=== PATIENT | male | born 1930 | race Caucasian/White ===

== ENCOUNTER 2016-04-18 14:30 | Inpatient (IN) | payer MEDICARE, OTHER ==
[~2016-04-18] VITALS: Ht 172.7 cm; Wt 71.6 kg
[2016-04-18 16:02] VITALS: BP_SYST 110; RESP 18; TEMP 97.9
[2016-04-18] MEDS ORDERED: SODIUM CHLORIDE 0.9% 1,000 ML IV SCH (18:25)
[2016-04-18 19:34] VITALS: BP_SYST 98; RESP 18; TEMP 98.1
[2016-04-18 20:54] VITALS: RESP 18
[2016-04-18] MEDS ORDERED: SULFAMETHOXAZOLE IV SCH (21:00)
[2016-04-18] MEDS ORDERED: METOPROLOL TART 25 MG TAB PO SCH (21:00)
[2016-04-18] MEDS ORDERED: TRIMETHOPRIM IV SCH (21:00)
[2016-04-18] MEDS: SUCRALFATE 1 GM TAB PO SCH (21:20)
[2016-04-18] MEDS: PREDNISONE 10 MG TAB PO SCH (21:20)
[2016-04-18] MEDS: SACCHA BOULARDII 250MG CAP PO SCH (21:20)
[2016-04-18] MEDS: FAMOTIDINE 20 MG TAB PO SCH (21:21)
[2016-04-18] MEDS: MINOCYCLINE HCL 50 MG CAP PO SCH (21:21)
[2016-04-18] MEDS: SULFAMETH IV SCH (21:23)
[2016-04-18] MEDS: DEXTROSE 5% IV SCH (21:23)
[2016-04-18] MEDS: TRIMETH IV SCH (21:23)
[2016-04-18] MEDS: DUONEB INH PRN (21:25)
[2016-04-18] MEDS ORDERED: LORAZEPAM 0.5 MG TAB PO ONE ×2 (22:50→22:55)
[2016-04-18 23:31] VITALS: BP_SYST 92; RESP 18; TEMP 96.9
[2016-04-19] VITALS (11 sets, daily range): BP systolic 118–142; RESP 18; TEMP 96.6–97.2; Ht 172.7 cm; Wt 71.6 kg
[2016-04-19] MEDS: DUONEB INH PRN ×6 (02:46→23:01)
[2016-04-19] MEDS ORDERED: LORAZEPAM 0.5 MG TAB ONE (06:03)
[2016-04-19] MEDS: SUCRALFATE 1 GM TAB PO SCH ×5 (06:37→21:29)
[2016-04-19] MEDS: DEXTROSE 5% IV SCH ×3 (08:00→19:11)
[2016-04-19] MEDS: TRIMETH IV SCH ×3 (08:00→19:11)
[2016-04-19] MEDS: SULFAMETH IV SCH ×3 (08:00→19:11)
[2016-04-19] MEDS ORDERED: SODIUM CHLORIDE 0.9% 1,000 ML IV SCH (08:10)
[2016-04-19] MEDS ORDERED: PHARMACY TO DOSE ANTIBIOTIC XX SCH (08:10)
[2016-04-19] MEDS ORDERED: KAYEXOLATE 15 GM/60 ML BTL PO ONE (08:15)
[2016-04-19] MEDS: FAMOTIDINE 20 MG TAB PO SCH ×2 (08:57→21:28)
[2016-04-19] MEDS: MINOCYCLINE HCL 50 MG CAP PO SCH ×2 (08:57→21:28)
[2016-04-19] MEDS: PREDNISONE 10 MG TAB PO SCH (08:57)
[2016-04-19] MEDS: SACCHA BOULARDII 250MG CAP PO SCH ×3 (08:57→21:29)
[2016-04-19] MEDS ORDERED: **NOTE TO NURSE XX SCH (09:10)
[2016-04-19] MEDS ORDERED: ONDANSETRON 4 MG VIAL ONE (14:07)
[2016-04-19] MEDS ORDERED: DILAUDID 1 MG/ML AMP ONE (15:05)
[2016-04-19] MEDS ORDERED: PREDNISONE 10 MG TAB PO ONE (18:00)
[2016-04-19] MEDS: DILTIAZEM CD 180 MG CAP PO SCH (19:17)
[2016-04-20] MEDS: DEXTROSE 5% IV SCH ×4 (02:18→23:58)
[2016-04-20] MEDS: TRIMETH IV SCH ×4 (02:18→23:58)
[2016-04-20] MEDS: SULFAMETH IV SCH ×4 (02:18→23:58)
[2016-04-20] MEDS: DUONEB INH PRN ×6 (02:41→23:01)
[2016-04-20 03:40] VITALS: BP_SYST 158; RESP 18; TEMP 97.3
[2016-04-20] MEDS ORDERED: METOPROLOL XL 25 MG TAB PO ONE (05:40)
[2016-04-20] MEDS: SUCRALFATE 1 GM TAB PO SCH ×4 (06:04→20:27)
[2016-04-20 07:41] VITALS: BP_SYST 120; RESP 16; TEMP 97
[2016-04-20] MEDS: MINOCYCLINE HCL 50 MG CAP PO SCH ×2 (08:44→20:27)
[2016-04-20] MEDS: FAMOTIDINE 20 MG TAB PO SCH ×2 (08:44→20:27)
[2016-04-20] MEDS: SACCHA BOULARDII 250MG CAP PO SCH ×3 (08:44→20:26)
[2016-04-20] MEDS: DILTIAZEM CD 180 MG CAP PO SCH (08:44)
[2016-04-20] MEDS: PREDNISONE 20 MG TAB PO SCH (08:45)
[2016-04-20] MEDS: BACITRACIN OINT TOPICAL SCH (08:46)
[2016-04-20] MEDS ORDERED: MISSING DOSE XX ONE (08:50)
[2016-04-20] MEDS ORDERED: APIXABAN 2.5 MG TAB PO SCH (09:00)
[2016-04-20 12:20] VITALS: BP_SYST 110; RESP 20; TEMP 96.2
[2016-04-20 15:39] VITALS: BP_SYST 118; RESP 18; TEMP 97.9
[2016-04-20 20:21] VITALS: BP_SYST 132; RESP 18; TEMP 96.8
[2016-04-20 23:05] VITALS: BP_SYST 140; RESP 16; TEMP 97.3
[2016-04-21] MEDS: DUONEB INH PRN ×6 (02:45→22:33)
[2016-04-21 03:37] VITALS: BP_SYST 128; RESP 16; TEMP 96.9
[2016-04-21] MEDS: SUCRALFATE 1 GM TAB PO SCH ×4 (06:33→20:20)
[2016-04-21] MEDS: BACITRACIN OINT TOPICAL SCH (07:39)
[2016-04-21 07:46] VITALS: BP_SYST 124; RESP 16; TEMP 96.8
[2016-04-21] MEDS: SACCHA BOULARDII 250MG CAP PO SCH ×3 (08:47→20:20)
[2016-04-21] MEDS: MINOCYCLINE HCL 50 MG CAP PO SCH ×2 (08:47→20:20)
[2016-04-21] MEDS: FAMOTIDINE 20 MG TAB PO SCH ×2 (08:47→20:20)
[2016-04-21] MEDS: PREDNISONE 20 MG TAB PO SCH (08:47)
[2016-04-21] MEDS ORDERED: MISSING DOSE XX ONE ×2 (08:50→08:55)
[2016-04-21] MEDS: DILTIAZEM CD 180 MG CAP PO SCH (09:17)
[2016-04-21] MEDS: TRIMETH IV SCH (09:17)
[2016-04-21] MEDS: DEXTROSE 5% IV SCH (09:17)
[2016-04-21] MEDS: SULFAMETH IV SCH (09:17)
[2016-04-21 11:51] VITALS: BP_SYST 130; RESP 16; TEMP 96.9
[2016-04-21 16:15] VITALS: BP_SYST 132; RESP 18; TEMP 97.8
[2016-04-21 19:31] VITALS: BP_SYST 134; RESP 16; TEMP 97.9
[2016-04-21 23:04] VITALS: BP_SYST 142; RESP 18; TEMP 97.4
[2016-04-22] MEDS: DUONEB INH PRN ×6 (02:32→22:31)
[2016-04-22 03:29] VITALS: BP_SYST 138; RESP 16; TEMP 96.7
[2016-04-22] MEDS: SUCRALFATE 1 GM TAB PO SCH ×4 (06:27→23:46)
[2016-04-22 07:26] VITALS: BP_SYST 162; RESP 20; TEMP 97.3
[2016-04-22] MEDS ORDERED: PHARMACY TO DOSE BACTRIM IV IV SCH (07:55)
[2016-04-22] MEDS: FAMOTIDINE 20 MG TAB PO SCH ×2 (08:42→20:48)
[2016-04-22] MEDS: DILTIAZEM CD 180 MG CAP PO SCH (08:42)
[2016-04-22] MEDS: SACCHA BOULARDII 250MG CAP PO SCH ×3 (08:42→20:48)
[2016-04-22] MEDS: PREDNISONE 20 MG TAB PO SCH (08:42)
[2016-04-22] MEDS: MINOCYCLINE HCL 50 MG CAP PO SCH (08:42)
[2016-04-22] MEDS ORDERED: TRIMETH IV SCH (08:55)
[2016-04-22] MEDS ORDERED: SULFAMETH IV SCH (08:55)
[2016-04-22] MEDS ORDERED: DEXTROSE 5% IV SCH (08:55)
[2016-04-22] MEDS: BACITRACIN OINT TOPICAL SCH (09:00)
[2016-04-22] MEDS: APIXABAN 2.5 MG TAB PO SCH ×2 (10:55→20:48)
[2016-04-22] MEDS: DIGOXIN 0.125 MG TAB PO SCH (10:55)
[2016-04-22] MEDS: METOPROLOL TART 25 MG TAB PO SCH ×2 (10:55→20:48)
[2016-04-22 11:27] VITALS: BP_SYST 128; RESP 18; TEMP 98
[2016-04-22] MEDS: MICAFUNGIN 50 MG in SODIUM CHLORIDE 0.9% 100 ML IV SCH (16:00)
[2016-04-22 16:46] VITALS: BP_SYST 124; RESP 18; TEMP 98
[2016-04-22 20:03] VITALS: BP_SYST 122; RESP 16; TEMP 97.5
[2016-04-22 22:48] VITALS: BP_SYST 118; RESP 16; TEMP 97.7
[2016-04-23] VITALS (7 sets, daily range): BP systolic 124–158; RESP 16–20; TEMP 96.7–97.9
[2016-04-23] MEDS ORDERED: SALINE FLUSH 10 ML FLUSH PRN (03:05)
[2016-04-23] MEDS: SODIUM CHLORIDE 0.9% FLUSH BAG 500 ML IV SCH (05:57)
[2016-04-23] MEDS: SUCRALFATE 1 GM TAB PO SCH ×4 (05:59→19:36)
[2016-04-23] MEDS: FAMOTIDINE 20 MG TAB PO SCH ×2 (08:34→21:01)
[2016-04-23] MEDS: APIXABAN 2.5 MG TAB PO SCH ×2 (08:34→21:01)
[2016-04-23] MEDS: SACCHA BOULARDII 250MG CAP PO SCH ×3 (08:34→21:01)
[2016-04-23] MEDS: PREDNISONE 20 MG TAB PO SCH (08:34)
[2016-04-23] MEDS: METOPROLOL TART 25 MG TAB PO SCH ×2 (08:36→21:01)
[2016-04-23] MEDS: DILTIAZEM CD 180 MG CAP PO SCH (08:36)
[2016-04-23] MEDS: SALINE FLUSH 10 ML FLUSH SCH ×2 (08:39→21:02)
[2016-04-23] MEDS: BACITRACIN OINT TOPICAL SCH (08:40)
[2016-04-23] MEDS ORDERED: MISSING DOSE XX ONE (08:45)
[2016-04-23] MEDS: DUONEB INH PRN ×3 (10:42→19:13)
[2016-04-23] MEDS: MICAFUNGIN 50 MG in SODIUM CHLORIDE 0.9% 100 ML IV SCH (10:54)
[2016-04-23] MEDS: DIGOXIN 0.125 MG TAB PO SCH (13:22)
[2016-04-24 03:10] VITALS: BP_SYST 168; TEMP 97
[2016-04-24] MEDS: SUCRALFATE 1 GM TAB PO SCH ×2 (06:10→11:36)
[2016-04-24] MEDS: SODIUM CHLORIDE 0.9% FLUSH BAG 500 ML IV SCH (06:10)
[2016-04-24 07:00] VITALS: BP_SYST 160; RESP 18; TEMP 96.6
[2016-04-24] MEDS: DUONEB INH PRN ×2 (07:31→10:35)
[2016-04-24] MEDS: SALINE FLUSH 10 ML FLUSH SCH (08:04)
[2016-04-24] MEDS: METOPROLOL TART 25 MG TAB PO SCH (08:05)
[2016-04-24] MEDS: FAMOTIDINE 20 MG TAB PO SCH (08:05)
[2016-04-24] MEDS: BACITRACIN OINT TOPICAL SCH (08:05)
[2016-04-24] MEDS: APIXABAN 2.5 MG TAB PO SCH (08:05)
[2016-04-24] MEDS: PREDNISONE 20 MG TAB PO SCH (08:05)
[2016-04-24] MEDS: SACCHA BOULARDII 250MG CAP PO SCH (08:05)
[2016-04-24] MEDS: DILTIAZEM CD 180 MG CAP PO SCH (08:05)
[2016-04-24] MEDS: MICAFUNGIN 50 MG in SODIUM CHLORIDE 0.9% 100 ML IV SCH (09:31)
[2016-04-24 12:04] VITALS: BP_SYST 112; RESP 18; TEMP 97.2
[2016-04-24] MEDS: DIGOXIN 0.125 MG TAB PO SCH (12:24)
[2016-04-24 12:39] VITALS: BP_SYST 112; RESP 18; TEMP 97.2
== END 2016-04-24 13:41 | DRG 988 ==
LOC: 4THE 15:50 → OBSVTOIN 04-19 20:38 → ENPENDDIS 04-19 20:38
PROVIDERS: ADMIT Internal Medicine; ATTEND Internal Medicine
PROC: 0PB43ZX Excision of Thoracic Vertebra, Percutaneous Approach, Diagnostic (ICD-10-PCS; principal; 2016-04-19)
DX: N17.9 Acute kidney failure, unspecified (principal); E87.1 Hypo-osmolality and hyponatremia; E46 Unspecified protein-calorie malnutrition; E11.22 Type 2 diabetes mellitus with diabetic chronic kidney disease; I50.32 Chronic diastolic (congestive) heart failure; M46.24 Osteomyelitis of vertebra, thoracic region; I48.0 Paroxysmal atrial fibrillation; J44.9 Chronic obstructive pulmonary disease, unspecified; R53.1 Weakness; W01.0XXA Fall on same level from slipping, tripping and stumbling without subsequent striking against object, initial encounter; Y92.008 Other place in unspecified non-institutional (private) residence as the place of occurrence of the external cause; R55 Syncope and collapse; N18.3 Chronic kidney disease, stage 3 (moderate); Z68.24 Body mass index [BMI] 24.0-24.9, adult; Z79.52 Long term (current) use of systemic steroids
CPT/HCPCS: 20225; 70450; 71250; 72125; 72146; 80048; 80053; 80162; 81001; 82533; 83880; 84145; 85025; 85610; 85652; 85730; 86141; 87040; 87071; 87075; 87077; 87088; 87186; 87205; 94640; 94799